=== PATIENT | male | born 1945 | race Caucasian/White ===

== ENCOUNTER 2022-11-13 08:50 | Day surgery (SDC) | payer MEDICARE, OTHER ==
[~2022-11-13] VITALS: Ht 185.4 cm; Wt 86.4 kg
[~2022-11-13 08:50] MED LIST: CELEBREX200 MG PO; HYDROCHLOROTHIA25 MG PO; LIPITOR20 MG PO; SAW PALMETTO450 MG PO; VENTOLIN HFA18 GM INH
[2022-11-13] MEDS ORDERED: DAILY VALUE1 EACH PO (09:23)
--- NOTE | 2022-11-13 10:13 | NUR ---
LE 0950: JOVANY GAMBINO, AND SAUNDRA IN ROOM PERFORMING RIGHT KNEE BLOCK. PT TOLERATED WELL. 1014: PT RESTING IN BED. TO BE BROUGHT BACK TO ROOM. CALL LIGHT WITHIN REACH. NO FURTHER NEEDS AT THIS TIME.
--- NOTE | 2022-11-13 12:17 | NUR ---
11/13/22 1217 Ann Meek 1211 PATIENT ARRIVES TO PACU AWAKE OFF/ON, BUT DROWSY. RESP EVEN AND UNLABORED, ROOM AIR SATS >94%. DENIES PAIN OR NAUSEA. RESTING WITH EYES CLOSED WHEN NOT STIMULATED.
--- NOTE | 2022-11-13 12:58 | NUR ---
REPORT TAKEN FROM MARK CURTIS. PT RESTING IN BED. APPEARS DROWSY, RESPONDS TO STIMULI. DENIES PAIN OR NAUSEA. PT SIPPING ON ICE WATER AT BEDSIDE. PT HAS ICE PACK WRAPPED AROUND R-KNEE. PAIN PUMP IN PLACE, CURRENTLY AT LEVEL 4. PT ASLEEP. LEFT TO RETURN HOME TO CARE FOR ANIMALS. STATES SHE WILL RETURN AT 4/5PM. CALL LIGHT WITHIN REACH. NO FURTHER NEEDS AT THIS TIME.
[2022-11-13] MEDS ORDERED: XARELTO10 MG PO (13:25)
[2022-11-13] MEDS ORDERED: CELECOXIB200 MG PO (13:25)
[2022-11-13] MEDS ORDERED: OXYCODONE HCL5 MG PO (13:26)
[2022-11-13] MEDS ORDERED: GABAPENTIN300 MG PO (13:26)
--- NOTE | 2022-11-13 13:37 | NUR ---
PT RESTING IN BED, REQUESTING PAIN MEDICATION FOR RIGHT ANKLE 5/10 PAIN. DENIES NAUSEA. PT ATE CRACKERS AND APPLE SAUCE AT BEDSIDE WITH SIPS OF ICE WATER. SPINAL RESOLVED. PT ABLE TO FEEL RN HAND ON BOTTOM OF R FOOT AND PUSH AGAINST HAND. URINAL LEFT AT BEDSIDE. ICE WATER AT BEDSIDE. CALL LIGHT WITHIN REACH.
--- NOTE | 2022-11-13 14:33 | NUR ---
PT RESTING IN BED. STATES HE IS TIRED. PT DENIES NAUSEA. PT REPORTS PAIN 5/10 IN RIGHT KNEE ND ANKLE. STATES THE OXYCODONE HAS NOT HELPED TO RELIEVE THE PAIN. PT HAS ICE WATER AT BEDSIDE. CALL LIGHT WITHIN REACH.
--- NOTE | 2022-11-13 15:34 | NUR ---
PT RESTING IN BED. PHYSICAL THERAPY IN ROOM WORKING WITH PT.
--- NOTE | 2022-11-13 16:21 | NUR ---
PT BACK FROM PHYSICAL THERAPY. PHYSICAL THERAPIST MICHAELLE STATES PT PASSES PHYSICAL THERAPY. PT REPORTS PAIN 5/10. PT VOMITED 200 ML OF CLEAR LIQUID AFTER DRINKING A LARGE AMOUNT OF WATER. PT DENIES NAUSEA. PT BACK IN BED WITH ICE WRAP ON R KNEE. PT SIPPING ON ICE WATER. AT BEDSIDE. WILL REFILL ICE MACHINE AT BEDSIDE. THIS RN WILL CALL DR KHAN TO REPORT PT STATUS. CALL LIGHT WITHIN REACH.
--- NOTE | 2022-11-13 16:38 | NUR ---
DR KHAN CALLED TO REPORT PT'S PAIN OF 7/[address] R K[address]EE[address] KHAN ORDERED THIS RN TO TURN PT ON Q PUMP TO 8. THIS RN TURNED PT ON Q PUMP TO 8.
--- NOTE | 2022-11-13 16:59 | NUR ---
PT RESTING IN BED. REPORTS PAIN /10. DENIES NAUSEA. AT BEDSIDE. WATER AT BEDSIDE. ANCEF GIVEN IV. CALL LIGHT WITHIN REACH.
--- NOTE | 2022-11-13 17:30 | NUR ---
PT VOMITED 700 ML ORANGE CLEAR LIQUID. PT STATES HE FEELS OKAY TO GO HOME TODAY. INFORMED PT NO NAUSEA MEDS ORDERED. PT VERBALIZED UNDERSTANDING AND STATES HE WOULD LIKE TO GO HOME TODAY.
--- NOTE | 2022-11-13 17:37 | NUR ---
DR KHAN CALLED. REPORT ON PT GIVEN. DR KHAN STATES PT IS CLEARED TO D/C HOME. DR KHAN ORDERS PAIN PUMP TO REMAIN AT 8 AND HE WILL CALL HIM TOMORROW. DISCHARGE ORDERS REVIEWED WITH PT AND . QUESTIONS AND CONCERNS ANSWERED.
--- NOTE | 2022-11-13 18:15 | NUR ---
PT IV D/C. PT DISCHARGED FROM DAY SURGERY VIA WHEELCHAIR. CRYOCUFF AND BOX GIVEN TO PT. PT DISCHARGED TO PERSONAL AUTOMOBILE TO .
--- NOTE | 2022-11-14 16:49 | OR ---
[facility] [address] [place], [place] [address] Signed DATE OF OPERATION: 11/13/2022 SURGEON: Bartolo Talavera MD PREOPERATIVE DIAGNOSIS: Severe DJD, right knee. POSTOPERATIVE DIAGNOSIS: Severe DJD, right knee. PROCEDURE PERFORMED: Right total knee arthroplasty with Leno. CUT OFF MAN: None. ANESTHESIA: Spinal. BLOOD LOSS: 175 mL. TOURNIQUET TIME: Zero. IMPLANTS: Corin Triathlon size 6, 10 mm insert and 35 mm patella. BRIEF HISTORY: Wicho is a 77-year-old gentleman with progressive worsening of osteoarthritis and valgus deformity. Risks and benefits of operative treatment were discussed with him after he failed nonoperative treatment. He wished to proceed. DESCRIPTION OF PROCEDURE: Once consent was obtained, he was taken to the operating room. After adequate anesthesia, he was placed on the operating table on a hip bump. Leg was then prepped and draped in a standard sterile fashion. Standard anterior midline incision was taken through the skin and subcutaneous tissue. Mid vastus arthrotomy was performed. The infrapatellar fat pad was excised and the MCL was elevated around to the mid medial joint line. The Leno navigation array was placed medial femoral condyle and the Electronically Signed By: BARTOLO TALAVERA MD 11/14/22 1649 PATIENT NAME: NATI HAWKINS OPERATIVE REPORT DATE OF : 47 REPORT #: [id number] PHYSICIAN: BARTOLO TALAVERA MD PCP: SISI MINOR MD REPORT IS CONFIDENTIAL AND NOT TO BE RELEASED WITHOUT AUTHORIZATION [facility] [address] [place], [place] [address] Signed proximal tibia. The leg was then registered with the computer as were the fine anatomic points of the knee. The testing was undertaken and a little bit more valgus was placed on the femur. The . The robot was then brought in and the four straight cuts and angled cuts were made with care taken to protect the patellar tendon and MCL throughout. The bone surfaces were removed as were any remaining osteophytes. Osteophytes remained were removed off the posterior femur and the trials were positioned. Knee was taken through range of motion and found to be stable but just a little bit loose for the 9 mm poly. The patella was cut sized and drilled for 35 patella. The distal femoral drill holes were finished as was the keel punch for the tibia and the drill holes for the tibia. The implants were selected and the tibia was impacted into position, followed by the polyethylene. The femur was impacted. The knee was extended and nicely loaded. Patella was clamped into position. The clamp was removed. Knee was taken through range of motion. Patella tracked well and the knee was stable. This was done with a 10 mm polyethylene. The periarticular soft tissues were injected with 100 mL of ropivacaine and Toradol mixture. The knee was irrigated with 1 L of Irrisept followed by 1 L of normal saline under manual irrigation. The On-Q pain pump was percutaneously placed into the adductor canal from the suprapatellar pouch. The arthrotomy was then closed using #2 Stratafix, subcutaneous tissue with 0-Quill and the skin with elie. Wound was dressed with an Acticoat 7 dressing, ABD, and Elton wrap. He tolerated the procedure well. All sponge, needle, and instrument counts were correct. Bartolo Talavera MD BA/JULIANNE /[id number] Copies: ~ Electronically Signed By: BARTOLO TALAVERA MD 11/14/22 1649 PATIENT NAME: NATI HAWKINS ADRIANNA OPERATIVE REPORT DATE OF : 47 REPORT #: [id number] PHYSICIAN: BARTOLO TALAVERA MD PCP: SISI MINOR MD REPORT IS CONFIDENTIAL AND NOT TO BE RELEASED WITHOUT AUTHORIZATION
== END 2022-11-13 18:05 | disposition home or self-care (01) ==
LOC: DS 08:50
PROVIDERS: ATTEND Specialist
PROC: 0SRC0JZ Replacement of Right Knee Joint with Synthetic Substitute, Open Approach (ICD-10-PCS; principal; 2022-11-13 12:05)
DX: M17.11 Unilateral primary osteoarthritis, right knee (principal)
CPT/HCPCS: J0171; J0690; J1100; J1885; J2001; J2250; J2405; J2704; J2795; J3010; J7040; J7121

== ENCOUNTER 2022-11-14 13:19 | Emergency (ER) | payer MEDICARE, OTHER ==
[~2022-11-14] VITALS: Ht 185.4 cm; Wt 86.2 kg
[~2022-11-14 13:19] MED LIST changes: +CELECOXIB200 MG PO; +DAILY VALUE1 EACH PO; +GABAPENTIN300 MG PO; +OXYCODONE HCL5 MG PO; +XARELTO10 MG PO
--- OUTSIDE RECORDS SUMMARY | 2022-11-14 13:22 | XMS ---
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 Miguel has no Care Guidelines for this patient. Mitch VISIT COUNT (12 MO.) 1 RANDEE Larios TOTAL 1 NOTE: Visits indicate total known visits. ED/C VISIT TRACKING (12 MO.) 11/14/2022 13:20 RANDEE Jaramillo OR TYPE: Emergency COMPLAINT: - SYNCOPE EPISODE, FALL, POST KNEE SURGERY INPATIENT VISIT TRACKING (12 MO.) No inpatient visits to display in this time frame [email or web address]
--- NOTE | 2022-11-15 13:58 | EKG ---
[facility] [address] [facility] [place] [address] Signed Sinus rhythm with premature atrial complexes Septal infarct , age undetermined Abnormal ECG No previous ECGs available Confirmed by ANAY DIGGS MD ([id number]) on 11/15/2022 1:58:49 PM Electronically Signed By: ANAY DIGGS MD 11/15/22 1358 PATIENT NAME: NATI HAWKINS ADRIANNA Electrocardiogram DATE OF : 47 PHYSICIAN: ANAY DIGGS MD REPORT #: [id number] REPORT IS CONFIDENTIAL AND NOT TO BE RELEASED WITHOUT AUTHORIZATION
== END 2022-11-14 18:45 | disposition home or self-care (01) ==
LOC: ED 13:19
DX: R55 Syncope and collapse (principal); Z88.0 Allergy status to penicillin; Z79.899 Other long term (current) drug therapy
CPT/HCPCS: 36415; 70450; 80048; 85025; 93005; 93010; 99284-25; J7030